=== PATIENT | female | born 1990 | race Caucasian/White ===

== ENCOUNTER 2019-10-29 22:46 | Emergency (ER) | payer MEDICAID ==
[~2019-10-29] VITALS: Ht 160 cm; Wt 50.0 kg
[2019-10-29 22:56] VITALS: BP 117/53
== END 2019-10-30 01:39 | disposition left against medical advice (07) ==
LOC: ER 22:46
DX: Z53.21 Procedure and treatment not carried out due to patient leaving prior to being seen by health care provider (principal)